=== PATIENT | male | born 1940 | race Caucasian/White ===

== ENCOUNTER 2016-09-06 15:03 | Day surgery (SDC) | payer MEDICARE, OTHER ==
--- NOTE | 2016-09-12 17:14 | Operative Note ---
DATE OF SURGERY: 09/06/2016. PREOPERATIVE DIAGNOSIS: Bladder cancer. POSTOPERATIVE DIAGNOSIS: Bladder cancer. OPERATION: CYSTOSCOPY. Anesthesia: Local. Indication: The patient is a 76-year-old male with a history of bladder cancer, status post BCG. He presents for surveillance cystoscopy today. This is a 4 month surveillance. PROCEDURE: Preop informed consent was obtained. Antibiotics were given. Patient was brought to the procedure room at [facility], placed supine, with the genitalia prepped and draped sterilely, and lidocaine jelly was placed in the urethra. Flexible cystoscopy was performed. The urethra appears unremarkable. The prostate appears previously resected and nonobstructive. The bladder was entered, and immediately seen at the bladder neck at about the 4 o'clock position is a small, roughly 3-4 mm papillary bladder tumor. The remainder of the bladder was inspected. Appeared unremarkable with no evidence of any other recurrence or abnormality, and the ureteral orifices were normal in appearance and positioning and appeared uninvolved with tumor. Scope was then withdrawn, and the surgery was terminated. Patient tolerated this quite well. PLAN: The patient will be scheduled for fulguration of the tumor in the very near future. CC: DO Buck Felton MD, [address] [place], [address] [facility]
== END 2016-09-06 15:36 | disposition home or self-care (01) ==
LOC: HOP 15:03
PROVIDERS: ATTEND Urology
DX: Z09 Encounter for follow-up examination after completed treatment for conditions other than malignant neoplasm (principal)

== ENCOUNTER 2017-02-21 04:23 | Emergency (ER) | payer MEDICARE, OTHER ==
[2017-02-21] MEDS ORDERED: LIDOCAINE UROJECT 10 ML APPL MM ONE (04:41)
[2017-02-21 04:44] LABS: URINE APPEARANCE CLEAR; URINE BILIRUBIN NEGATIVE (NEGATIVE); URINE BLOOD SMALL (NEGATIVE); URINE COLOR YELLOW; URINE GLUCOSE (UA) NEGATIVE (NEGATIVE); URINE KETONE NEGATIVE (NEGATIVE); URINE LEUKOCYTE ESTERASE NEGATIVE (NEGATIVE); URINE NITRITE NEGATIVE (NEGATIVE); URINE PROTEIN NEGATIVE (NEGATIVE); URINE UROBILINOGEN 0.2 E.U./dL (0.20 - 1.00)
[2017-02-21 04:46] LABS: URINE BACTERIA NONE SEEN; URINE EPITHELIAL CELLS 0 - 2 (FEW); URINE WBC 0 - 2 (0-2/hpf)
--- NOTE | 2017-02-21 04:48 | Emergency Department Record ---
History of Present Illness - General Chief complaint: Male Urogenital Problem Stated complaint: UNABLE TO URINATE Time Seen by Provider: 02/21/17 04:43 Source: Patient Mode of Arrival: Ambulatory Limitations: No limitations - History of Present Illness Initial comments: 77 yo male presents to ED for urinary retention symptoms following a bladder surgery 1 week a go with Dr. Garza. Patient reports that he underwent a recent "scraping" of the bladder wall 1 weeks ago for bladder cancer, denies blood in the urine, fevers, or recent illness. Patient is currently taking Cipro following his procedure. MD Complaint: Other (urinary retention) Onset/Timin -: Hour(s) Location: Abdomen Severity scale (1-10): 10 Quality: Other Consistency: Constant Improves with: Urination Worsens with: Movement, Palpation Recent surgery Reports: Urinary retention - Related Data Home Medications Medication Instructions Recorded Confirmed Last Taken Meclizine HCl [Antivert] 25 mg PO Q8H PRN 02/21/17 02/21/17 Unknown Previous Rx's Medication Instructions Recorded Ciprofloxacin HCl [Cipro] 500 mg PO Q12H #20 tablet 02/16/15 Allergies Allergy/AdvReac Type Severity Reaction Status Date / Time Penicillins [PENICILLINS] Allergy Unknown PT UNSURE Verified 02/13/15 09:52 OF REACTION Travel Screening - Travel/Exposure Within Last 30 Days Have you traveled within the last 30 days?: No - Travel Symptoms Symptom Screening: None Review of Systems Constitutional: Denies: Chills, Fever, Malaise, Night sweats Eyes: Denies: Eye discharge, Eye pain ENT: Denies: Congestion, Ear pain, Epistaxis Respiratory: Denies: Cough, Dyspnea Cardiovascular: Denies: Chest pain, Dyspnea on exertion Endocrine: Denies: Fatigue, Heat or cold intolerance Gastrointestinal: Reports: Abdominal pain. Denies: Vomiting Genitourinary: Reports: Retention. Denies: Incontinence Musculoskeletal: Denies: Arthralgia, Back pain, Gout, Joint swelling Skin: Denies: Bruising, Change in color Neurological: Denies: Abnormal gait, Confusion, Headache, Seizure Psychiatric: Denies: Anxiety Hematological/Lymphatic: Denies: Anemia, Blood Clots Past Medical History - SOCIAL HISTORY Smoking Status: Never smoker - RESPIRATORY Hx Respiratory Disorders: Yes Hx Sleep Apnea: Yes Hx of CPAP: Yes - CARDIOVASCULAR Hx Cardio Disorders: No - NEURO Hx Neuro Disorders: Yes Hx Dementia: Yes (mild takes meds for memory) Hx Dizziness: Yes (vertigo occass) Hx of Migraines: Yes (with vertigo 2-3 x's a year) Hx Neuropathy: Yes (left leg) - GI Hx GI Disorders: Yes Hx Diverticulitis: Yes Hx Irritable Bowel: Yes (controlled) Hx of Polyps: Yes - Hx Genitourinary Disorders: Yes Hx Bladder Problem: Yes (Bladder CA) Hx Prostate Problems: Yes (BPH) - ENDOCRINE Hx Endocrine Disorders: No - MUSCULOSKELETAL Hx Musculoskeletal Disorders: Yes Hx Arthritis: Yes (knees) Hx Back Injury: No - PSYCH Hx Psych Problems: No - HEMATOLOGY/ONCOLOGY Hx Hematology/Oncology Disorders: Yes Hx Cancer: Yes (Bladder, skin) Hx Chemotherapy: No Hx Radiation Therapy: No Family Medical History Any Significant Family History?: Yes Hx Kidney Disease: Father Hx Stroke: Father Physical Exam - General General Appearance: Alert, Oriented x3, Cooperative, Moderate distress (appears uncomfortable on examination due to retention symptoms) Limitations: No limitations - Head Head exam: Atraumatic, Normocephalic, Normal inspection Head exam detail: negative: Abrasion, Contusion, Arizmendi's sign, General tenderness, Hematoma, Laceration - Eye Eye exam: Normal appearance. negative: Conjunctival injection, Periorbital swelling, Periorbital tenderness, Scleral icterus - ENT Ear exam: negative: Auricular hematoma, Auricular trauma Nasal Exam: negative: Active bleeding, Discharge, Dried blood, Foreign body Mouth exam: negative: Drooling, Laceration, Muffled voice, Tongue elevation - Neck Neck exam: Normal inspection. negative: Meningismus, Tenderness - Respiratory Respiratory exam: Normal lung sounds bilaterally. negative: Rales, Respiratory distress, Rhonchi, Stridor - Cardiovascular Cardiovascular Exam: Regular rate, Normal rhythm, Normal heart sounds - GI/Abdominal GI/Abdominal exam: Soft. negative: Rebound, Rigid, Tenderness - Rectal Rectal exam: Deferred - exam: Deferred - Extremities Extremities exam: Normal inspection. negative: Pedal edema, Tenderness - Back Back exam: Denies: CVA tenderness (R), CVA tenderness (L) - Neurological Neurological exam: Alert, Normal gait, Oriented X3 - Psychiatric Psychiatric exam: Normal affect, Normal mood - Skin Skin exam: Normal color. negative: Abrasion Type of lesion: negative: abrasion Course Vital Signs 12/05/17 04:30 Temperature 98.3 F Pulse Rate 60 Respiratory 28 H Rate Blood Pressure 156/80 Pulse Ox 98 - Reevaluation(s) Reevaluation #1: 02/21/17 04:48 UA reviewed and appears negative for blood or infection. Disposition Disposition: Discharge Clinical Impression: Urinary retention Disposition: Home, Self-Care Condition: (2) Stable Instructions: Urinary Retention in Men (ED) Additional Instructions: Return to ED if your symptoms worsen or if you have any concerns. Follow-up with Dr. Garza later today as scheduled. Continue Cipro as prescribed. Forms: Patient Portal Access Time of Disposition: 04:49 Quality - Quality Measures Quality Measures: N/A - Blood Pressure Screening Does Patient Have Any of the Following: No Blood Pressure Classification: Pre-Hypertensive BP Reading Systolic Measurement: 156 Diastolic Measurement: 80 Screening for High Blood Pressure: < Pre-Hypertensive BP, F/U Documented > [ G8950] Pre-Hypertensive Follow-up Interventions: Referral to alternative/primary care provider.
== END 2017-02-21 05:20 | disposition home or self-care (01) ==
LOC: ER 04:23
DX: R33.8 Other retention of urine (principal); N40.1 Benign prostatic hyperplasia with lower urinary tract symptoms; C67.9 Malignant neoplasm of bladder, unspecified
CPT/HCPCS: 81001; 99283

== ENCOUNTER 2017-11-13 00:50 | Emergency (ER) | payer MEDICARE, OTHER ==
[2017-11-13] MEDS ORDERED: TOPICAL LIDOCAINE W/ EPI 5 ML TOP ONE (01:04)
[2017-11-13] MEDS ORDERED: OXYMETAZOLINE HCL 15 ML BTL NASAL ONE (01:04)
--- NOTE | 2017-11-13 01:07 | Emergency Department Record ---
History of Present Illness - General Chief complaint: Nosebleed/epistaxis Stated complaint: NOSE BLEED Time Seen by Provider: 11/13/17 00:51 Source: Patient Mode of Arrival: Ambulatory Limitations: No limitations - History of Present Illness Initial comments: The patient is here due to a nosebleed out of the L nares over the last hour. The onset was after blowing his nose. He does not have any hx of frequent nosebleeds and is not on blood thinners. The patient was on a baby ASA every other day but that was stopped 3 days ago. MD complaint: Epistaxis Onset/Timin -: Minutes(s) Location: Nose Severity: Mild Consistency: Constant - Related Data Home Medications Medication Instructions Recorded Confirmed Last Taken Dicyclomine HCl [Bentyl] 10 mg PO DAILY PRN 11/13/17 11/13/17 Unknown L.acidoph,Paracasei, B.lactis 1 each PO DAILY 11/13/17 11/13/17 Unknown [Probiotic] Multivitamin [Multi-Vitamin Daily] 1 each PO DAILY 11/13/17 11/13/17 Unknown Ranitidine HCl [Zantac] 75 mg PO ASDIR PRN 11/13/17 11/13/17 Unknown Allergies Allergy/AdvReac Type Severity Reaction Status Date / Time Penicillins [PENICILLINS] Allergy Unknown PT UNSURE Verified 02/13/15 09:52 OF REACTION Travel Screening - Travel/Exposure Within Last 30 Days Have you traveled within the last 30 days?: No - Travel Symptoms Symptom Screening: None Review of Systems Constitutional: Denies: Chills, Fever Eyes: Denies: Eye discharge ENT: Denies: Congestion Respiratory: Denies: Cough, Dyspnea Past Medical History - SOCIAL HISTORY Smoking Status: Never smoker Alcohol Use: None Drug Use: None - RESPIRATORY Hx Respiratory Disorders: Yes Hx Sleep Apnea: Yes Hx of CPAP: Yes - CARDIOVASCULAR Hx Cardio Disorders: No - NEURO Hx Neuro Disorders: Yes Hx Dementia: Yes (mild takes meds for memory) Hx Dizziness: Yes (vertigo occass) Hx of Migraines: Yes (with vertigo 2-3 x's a year) Hx Neuropathy: Yes (left leg) - GI Hx GI Disorders: Yes Hx Diverticulitis: Yes Hx Irritable Bowel: Yes (controlled) Hx of Polyps: Yes - Hx Genitourinary Disorders: Yes Hx Bladder Problem: Yes (Bladder CA) Hx Prostate Problems: Yes (BPH) - ENDOCRINE Hx Endocrine Disorders: No - MUSCULOSKELETAL Hx Musculoskeletal Disorders: Yes Hx Arthritis: Yes (knees) Hx Back Injury: No - PSYCH Hx Psych Problems: No - HEMATOLOGY/ONCOLOGY Hx Hematology/Oncology Disorders: Yes Hx Cancer: Yes (Bladder, skin) Hx Chemotherapy: No Hx Radiation Therapy: No Family Medical History Any Significant Family History?: Yes Hx Kidney Disease: Father Hx Stroke: Father Physical Exam - General General Appearance: Alert, Oriented x3, Cooperative, No acute distress - Head Head exam: Atraumatic, Normocephalic, Normal inspection - Eye Eye exam: Normal appearance, PERRL - ENT Nasal Exam: Active bleeding, Other (There is an obvious bleeding area on the L anterior medial wall of the L nares. The area was cauterized with silver nitrate successfully.). negative: Normal inspection, Discharge - Neck Neck exam: Normal inspection, Full ROM. negative: Tenderness - Respiratory Respiratory exam: Normal lung sounds bilaterally. negative: Respiratory distress - Cardiovascular Cardiovascular Exam: Regular rate, Normal rhythm, Normal heart sounds - Neurological Neurological exam: Alert, Normal gait. negative: Abnormal gait, Motor sensory deficit Course Vital Signs 11/13/17 00:56 Pulse Rate [ 62 Pulse Ox Probe] Respiratory 20 Rate Blood Pressure 131/79 [Left Arm] Pulse Ox 97 - Reevaluation(s) Reevaluation #1: Procedure note: Epistaxis: The L nares was prepped with TLE and Afrin. There was a bleeding source visualized on the medial anterior septal area that was successfully cauterized. There were no complications. 11/13/17 01:28 Disposition Disposition: Discharge Clinical Impression: Anterior epistaxis Disposition: Home, Self-Care Condition: (2) Stable Instructions: Nosebleed (ED) Additional Instructions: Please keep moist with ocean nasal spray 2-3 times a day L nares and do not pick or blow the nose hard. Please return to the ER for any problems. Forms: Patient Portal Access Time of Disposition: 01:31 Quality - Quality Measures Quality Measures: N/A - Blood Pressure Screening View Details: Yes Does Patient Have Any of the Following: No Blood Pressure Classification: Pre-Hypertensive BP Reading Systolic Measurement: 131 Diastolic Measurement: 78 Screening for High Blood Pressure: < Pre-Hypertensive BP, F/U Documented > [ G8950] Pre-Hypertensive Follow-up Interventions: Referral to alternative/primary care provider.
== END 2017-11-13 01:46 | disposition home or self-care (01) ==
LOC: ER 00:50
DX: R04.0 Epistaxis (principal)
CPT/HCPCS: 30901; 99283

== ENCOUNTER 2018-02-17 01:14 | Emergency (ER) | payer MEDICARE, OTHER ==
[2018-02-17] MEDS ORDERED: LIDOCAINE UROJECT 10 ML APPL MM ONE (01:27)
--- NOTE | 2018-02-17 01:30 | Emergency Department Record ---
History of Present Illness - General Chief complaint: Male Urogenital Problem Stated complaint: PAIN WITH URINATION Time Seen by Provider: 02/17/18 01:19 Source: Patient, Family Mode of Arrival: Ambulatory Limitations: No limitations - History of Present Illness Initial comments: 78 yo male presents with difficulty urinary. He has a history of prior bladder cancer. He had a cystoscopy on Monday. He initial had burning and irritation with urination with difficulty. He now is unable to void that started this afternoon. No blood. No blood thinners. He states his cystoscopy did not demonstrate any cancer. Dr Barton is his doctor. MD Complaint: Dysuria -: Hour(s) Location: Abdomen Radiation: Suprapubic Severity: Moderate Quality: Aching Consistency: Constant Improves with: None Worsens with: Palpation Recent surgery Reports: Dysuria - Related Data Home Medications Medication Instructions Recorded Confirmed Last Taken Aspirin Chewable 81 mg PO ASDIR 02/17/18 02/17/18 Unknown Previous Rx's Medication Instructions Recorded Sulfamethoxazole/Trimethoprim 1 each PO BID #8 tablet 02/17/18 [Bactrim Ds Tablet] Allergies Allergy/AdvReac Type Severity Reaction Status Date / Time Penicillins [PENICILLINS] Allergy Unknown PT UNSURE Verified 02/13/15 09:52 OF REACTION Review of Systems Constitutional: Denies: Chills, Fever, Malaise, Weakness Eyes: Denies: Eye discharge ENT: Denies: Congestion, Throat pain Respiratory: Denies: Cough Cardiovascular: Denies: Chest pain Endocrine: Denies: Fatigue Gastrointestinal: Reports: Abdominal pain. Denies: Diarrhea, Nausea, Vomiting Genitourinary: Reports: Dysuria Musculoskeletal: Denies: Arthralgia, Back pain, Joint swelling, Myalgia Skin: Denies: Bruising, Change in color, Rash Neurological: Denies: Headache Psychiatric: Denies: Anxiety Hematological/Lymphatic: Denies: Easy bleeding, Easy bruising Past Medical History - SOCIAL HISTORY Smoking Status: Never smoker Drug Use: None - RESPIRATORY Hx Respiratory Disorders: Yes Hx Sleep Apnea: Yes Hx of CPAP: Yes - CARDIOVASCULAR Hx Cardio Disorders: No - NEURO Hx Neuro Disorders: Yes Hx Dementia: Yes (mild takes meds for memory) Hx Dizziness: Yes (vertigo occass) Hx of Migraines: Yes (with vertigo 2-3 x's a year) Hx Neuropathy: Yes (left leg) - GI Hx GI Disorders: Yes Hx Diverticulitis: Yes Hx Irritable Bowel: Yes (controlled) Hx of Polyps: Yes - Hx Genitourinary Disorders: Yes Hx Bladder Problem: Yes (Bladder CA) Hx Prostate Problems: Yes (BPH) - ENDOCRINE Hx Endocrine Disorders: No - MUSCULOSKELETAL Hx Musculoskeletal Disorders: Yes Hx Arthritis: Yes (knees) Hx Back Injury: No - PSYCH Hx Psych Problems: No - HEMATOLOGY/ONCOLOGY Hx Hematology/Oncology Disorders: Yes Hx Cancer: Yes (Bladder, skin) Hx Chemotherapy: No Hx Radiation Therapy: No Family Medical History Hx Kidney Disease: Father Hx Stroke: Father Physical Exam - General General Appearance: Alert, Oriented x3, Cooperative, No acute distress Limitations: No limitations - Head Head exam: Atraumatic, Normal inspection - Eye Eye exam: Normal appearance - ENT ENT exam: Normal exam Ear exam: Normal external inspection Nasal Exam: Normal inspection Mouth exam: Normal external inspection - Neck Neck exam: Normal inspection - GI/Abdominal GI/Abdominal exam: Soft, Tenderness - exam: Circumcision - Extremities Extremities exam: Normal inspection - Neurological Neurological exam: Alert, Oriented X3 - Psychiatric Psychiatric exam: Normal affect, Normal mood - Skin Skin exam: Dry, Intact, Normal color, Warm Course - Reevaluation(s) Reevaluation #1: 02/17/18 01:49 16 F Warren placed by RN with mild resistance. Clear piña urine noted. Approximately 1 liter. The patient got very good relief 02/17/18 02:01 The UA is negative 02/17/18 02:08 The patient is doing well tolerating the warren He has used one in the past and comfortable with the plan DC home with leg bag Disposition Disposition: Discharge Clinical Impression: Urinary retention Disposition: Home, Self-Care Condition: (1) Good Instructions: Urinary Retention in Men (ED), Warren Catheter Placement and Care (ED) Additional Instructions: Call Dr Barton Monday to discuss the urinary retention and need of a warren Return of be seen if you have any issues or concerns with the warren or leg bag Take the antibiotic with the warren catheter is in place. Prescriptions: Sulfamethoxazole/Trimethoprim [Bactrim Ds Tablet] 1 each PO BID #8 tablet Referrals: NIVIA BARTON M.D. [MEDICAL DOCTOR] - Time of Disposition: 01:53 Quality - Quality Measures Quality Measures: N/A - Blood Pressure Screening Does Patient Have Any of the Following: Active Dx of HTN Systolic Measurement: ~ Screening for High Blood Pressure: Patient Exclusion, Hx of HTN [G9744]
[2018-02-17 01:54] LABS: URINE APPEARANCE CLEAR; URINE BILIRUBIN NEGATIVE (NEGATIVE); URINE BLOOD NEGATIVE (NEGATIVE); URINE COLOR YELLOW; URINE GLUCOSE (UA) NEGATIVE (NEGATIVE); URINE KETONE NEGATIVE (NEGATIVE); URINE LEUKOCYTE ESTERASE NEGATIVE (NEGATIVE); URINE NITRITE NEGATIVE (NEGATIVE); URINE PROTEIN NEGATIVE (NEGATIVE); URINE UROBILINOGEN 0.2 E.U./dL (0.20 - 1.00)
[2018-02-17] MEDS ORDERED: TMP/SMZ 160MG/800MG TAB PO ONE (02:01)
== END 2018-02-17 02:35 | disposition home or self-care (01) ==
LOC: ER 01:14
DX: R33.9 Retention of urine, unspecified (principal); F03.90 Unspecified dementia, unspecified severity, without behavioral disturbance, psychotic disturbance, mood disturbance, and anxiety; I10 Essential (primary) hypertension; Z85.51 Personal history of malignant neoplasm of bladder
CPT/HCPCS: 51702; 99283 ×2; 81003; J3490

== ENCOUNTER 2018-02-19 17:06 | Emergency (ER) | payer MEDICARE, OTHER ==
--- NOTE | 2018-02-19 18:12 | Emergency Department Record ---
History of Present Illness - General Chief complaint: Male Urogenital Problem Stated complaint: CATHETER PAIN/MEGAN FEELING TO URINATE Time Seen by Provider: 02/19/18 17:11 Source: Patient Mode of Arrival: Ambulatory Limitations: No limitations - History of Present Illness Initial comments: The patient had a warren catheter placed 2 days ago for urine retention and now is having a lot of pain at the end of his penis. The catheter is draining normally with no blood or issues and he also denies any AP. The patient did have a Cystoscopy last week that was normal but then had retention 2 days ago. Complaint: Other Onset/Timin -: Days(s) Indwelling catheter Reports: Urinary retention - Related Data Sexually active: No Previous Rx's Medication Instructions Recorded Sulfamethoxazole/Trimethoprim 1 each PO BID #8 tablet 02/17/18 [Bactrim Ds Tablet] Allergies Allergy/AdvReac Type Severity Reaction Status Date / Time Penicillins [PENICILLINS] Allergy Unknown PT UNSURE Verified 02/19/18 17:20 OF REACTION Travel Screening - Travel/Exposure Within Last 30 Days Have you traveled within the last 30 days?: No - Travel/Exposure Within Last Year Have you traveled outside the [place] in the last year?: No - Additonal Travel Details Have you been exposed to anyone with a communicable illness?: No - Travel Symptoms Symptom Screening: None Review of Systems Constitutional: Denies: Chills, Fever Eyes: Denies: Eye discharge ENT: Denies: Congestion Respiratory: Denies: Cough, Dyspnea Past Medical History - SOCIAL HISTORY Smoking Status: Never smoker Alcohol Use: None Drug Use: None - RESPIRATORY Hx Respiratory Disorders: Yes Hx Sleep Apnea: Yes Hx of CPAP: Yes - CARDIOVASCULAR Hx Cardio Disorders: No - NEURO Hx Neuro Disorders: Yes Hx Dementia: Yes (mild takes meds for memory) Hx Dizziness: Yes (vertigo occass) Hx of Migraines: Yes (with vertigo 2-3 x's a year) Hx Neuropathy: Yes (left leg) - GI Hx GI Disorders: Yes Hx Diverticulitis: Yes Hx Irritable Bowel: Yes (controlled) Hx of Polyps: Yes - Hx Genitourinary Disorders: Yes Hx Bladder Problem: Yes (Bladder CA) Hx Prostate Problems: Yes (BPH) - ENDOCRINE Hx Endocrine Disorders: No - MUSCULOSKELETAL Hx Musculoskeletal Disorders: Yes Hx Arthritis: Yes (knees) Hx Back Injury: No - PSYCH Hx Psych Problems: No - HEMATOLOGY/ONCOLOGY Hx Hematology/Oncology Disorders: Yes Hx Cancer: Yes (Bladder, skin) Hx Chemotherapy: No Hx Radiation Therapy: No Family Medical History Any Significant Family History?: No Hx Kidney Disease: Father Hx Stroke: Father Physical Exam - General General Appearance: Alert, Oriented x3, Cooperative, No acute distress - Head Head exam: Atraumatic, Normocephalic, Normal inspection - Eye Eye exam: Normal appearance, PERRL - Neck Neck exam: Normal inspection, Full ROM. negative: Tenderness - Respiratory Respiratory exam: Normal lung sounds bilaterally. negative: Respiratory distress - Cardiovascular Cardiovascular Exam: Regular rate, Normal rhythm, Normal heart sounds - GI/Abdominal GI/Abdominal exam: Soft, Normal bowel sounds. negative: Rebound, Rigid, Tenderness - exam: Circumcision, Normal inspection. negative: Testicular tenderness - Extremities Extremities exam: Normal inspection, Full ROM, Normal capillary refill. negative: Tenderness Course Vital Signs 02/19/18 17:09 Temperature 97.8 F Pulse Rate 64 Respiratory 18 Rate Blood Pressure 140/87 Pulse Ox 98 - Reevaluation(s) Reevaluation #1: I did discuss the case with Dr. Wills who is convex grinder for Dr. Garza and he would like a 300 ml fluid challenge in the bladder. If the patient passes the test we can keep the catheter out. 02/19/18 18:16 Reevaluation #2: The patient had the 300 mls placed into the bladder sterile technique and was able to void all of it out with no pain or difficulty. 02/19/18 18:17 Disposition Disposition: Discharge Clinical Impression: Urinary retention Disposition: Home, Self-Care Condition: (2) Stable Instructions: Urinary Retention in Men (ED) Additional Instructions: Continue your regular medicines and stay away from all cold medicines. Please see Dr. Garza when possible and return to the ER for any further episodes of retention. Please hold your Bentyl and Antivert if possible. Forms: Patient Portal Access Time of Disposition: 18:11 Quality - Quality Measures Quality Measures: N/A - Blood Pressure Screening View Details: Yes Does Patient Have Any of the Following: No Blood Pressure Classification: Pre-Hypertensive BP Reading Systolic Measurement: 140 Diastolic Measurement: 87 Screening for High Blood Pressure: < Pre-Hypertensive BP, F/U Documented > [ G8950] Pre-Hypertensive Follow-up Interventions: Referral to alternative/primary care provider.
== END 2018-02-19 18:23 | disposition home or self-care (01) ==
LOC: ER 17:06
DX: R33.9 Retention of urine, unspecified (principal); Z85.51 Personal history of malignant neoplasm of bladder
CPT/HCPCS: 99282